=== PATIENT | female | born 1955 | race African-American/Black ===

== ENCOUNTER → 2017-05-22 | Outpatient (CLI) | payer OTHER ==
[2017-05-22 09:39] LABS: HEMATOCRIT 38.3 % (36.0-47.0); HEMOGLOBIN 12.6 g/dL (12.0-15.5); HGB HCT DIFFERENCE -0.5; MEAN CORPUSCULAR HEMOGLOBIN 29.9 pg (27.0-33.4); MEAN CORPUSCULAR VOLUME 91 fl (80-97); RED BLOOD COUNT 4.23 10^6/uL (3.72-5.28); RED CELL DISTRIBUTION WIDTH 13.9 % (11.5-14.0); WHITE BLOOD COUNT 19.5 10^3/uL (4.0-10.5)
[2017-05-22 10:12] LABS: ABSOLUTE EOSINOPHILS# (MANUAL) 0.4 10^3/uL (0.0-0.6); BASOPHILS % (MANUAL) 0 % (0-2); EOSINOPHILS % (MANUAL) 2 % (0-6); TOTAL CELLS COUNTED 100
[2017-05-22 10:14] LABS: ANISOCYTOSIS SLIGHT; LYMPHOCYTES % (MANUAL) 78 % (13-45); SMUDGE CELLS PRESENT
== END ==
LOC: OD 08:34
PROVIDERS: ATTEND Dentist Oral and Maxillofacial Surgery
DX: C91.10 Chronic lymphocytic leukemia of B-cell type not having achieved remission (principal)
CPT/HCPCS: 36415; 85025